=== PATIENT | male | born 1950 | race Caucasian/White ===

== ENCOUNTER 2024-04-15 08:45 | Day surgery (SDC) | payer OTHER ==
[2024-04-08 09:24] VITALS: BP 128/72
[~2024-04-15] VITALS: Ht 172.7 cm; Wt 113.6 kg
--- NOTE | ~2024-04-15 | OR ---
[facility] [address] [facility], [place] [address] Draft DATE OF OPERATION: 04/15/2024 SURGEON: Rhiannon Baptiste DPM PREOPERATIVE DIAGNOSES: 1. Displaced fracture, right first metatarsal. 2. Failure of hardware, right first metatarsal. PROCEDURE: 1. Removal of deep orthopedic device. 2. Open reduction and internal fixation of right first metatarsal fracture. SHORT FILLER BUNCH MACHINE OPERATOR: Jorge Denny DPM. NURSE [employer]CHOOL RESOURCE OFFICER: Sharron Dodson CRNA ANESTHESIA: Local with MAC, local consisted of 10 mL of 1:1 mixture of 2% lidocaine plain and 0.5% ropivacaine plain. ESTIMATED BLOOD LOSS: Less than 5 mL or minimal. HEMOSTASIS: With an ankle tourniquet. MATERIALS UTILIZED: One locking plate with four screws, three of them locking, one of them nonlocking, 3-0 Vicryl, 4-0 Vicryl, and 5-0 nylon. PROCEDURE IN DETAIL: The patient was brought into the operating room and placed upon the operating table in the supine position. After IV sedation, the above local anesthesia was administered about the patient's right first metatarsal region. The right foot was then scrubbed, prepped, and draped in the usual sterile technique. An Esmarch bandage was utilized to exsanguinate the patient's right foot and then left wrapped around the ankle to act as a tourniquet. Attention was then directed to the dorsal aspect of the patient's right first metatarsal area approximately a 6 cm incision was performed both parallel and PATIENT NAME: CORY SWANSON OPERATIVE REPORT DATE OF : 52 REPORT #: [id number] PHYSICIAN: RHIANNON BAPTISTE DPM PCP: MIKHAIL MIRAMONTES REPORT IS CONFIDENTIAL AND NOT TO BE RELEASED WITHOUT AUTHORIZATION [facility] [address] [place] [id number] Draft medial to the tendon of the extensor hallucis longus. The incision was oriented along the line of the previous incision. The incision was deepened through the subcutaneous tissue with care being taken to identify and retract vital neurovascular structures. Bleeders were cauterized and ligated as necessary. Sharp dissection utilized with a #64 blade, it was utilized down to the level of the bone. At this time, a hardware was discovered plate with the locking screws in place. The first metatarsal head had been displaced dorsally and slid also somewhat proximally telescoping slightly over the remaining first metatarsal with the proximal component of the locking plate still in place. Soft tissue was freed from the locking plate region utilizing a [place] elevator and then #64 blade. A [employer] screwdriver was then utilized to remove the locking screws, which was still firmly in place first distally and then proximally along with the broken component of the locking plate. Both the screws and locking plate were removed. The area was flushed with copious amounts of sterile normal saline. The patient's toe was distracted and the first metatarsal manipulated to reorient the metatarsal head into more correct position. This was then held in place utilizing a K-wire. Intraoperative fluoroscopy was utilized to appreciate alignment and jainism of the first metatarsal length. A new locking plate was then applied. Locking screws were then applied both distally and proximally, one nonlocking screw was also applied proximally. Intraoperative fluoroscopy verified placement of the screws and found to be ideal. The area was then closed utilizing 3-0 Vicryl for deep and then 5-0 nylon was utilized to reapproximated and coapt the skin. Surgical site was then injected with a postoperative injection consisting of 5 mL of 0.5% ropivacaine, 1 mL of dexamethasone phosphate. The surgical site was then closed utilizing Adaptic, Betadine soaked gauze, rolled gauze and Coban. The ankle tourniquet was then removed. Prompt hyperemic response was noted to all digits of the patient's right foot. The patient tolerated the procedure and the anesthesia well and following the period of postoperative monitoring, the patient was discharged to home with both written and oral instructions. LEIGH ANN Diaz/WOO /[id number] Copies: PATIENT NAME: CORY SWANSON OPERATIVE REPORT DATE OF : 52 REPORT #: [id number] PHYSICIAN: RHIANNON BAPTISTE DPM PCP: MIKHAIL MIRAMONTES REPORT IS CONFIDENTIAL AND NOT TO BE RELEASED WITHOUT AUTHORIZATION [facility] [address] [place] [address] Rajinder Barone [place] [address] Draft ~ PATIENT NAME: CORY SWANSON OPERATIVE REPORT DATE OF : 52 REPORT #: [id number] PHYSICIAN: RHIANNON BAPTISTE DPM PCP: MIKHAIL MIRAMONTES REPORT IS CONFIDENTIAL AND NOT TO BE RELEASED WITHOUT AUTHORIZATION
[~2024-04-15 08:45] MED LIST: ALOGLIPTIN25 MG PO; B12 ACTIVE1000 MCG PO; BAYER CHEWABLE81 MG PO; CEFAZOLIN SODIUM 1 GM/10 ML SYR IV SCH; CLARITIN10 M2 PO; GLIPIZIDE10 MG PO; IBLOOD GLUCOSE TEST STRIP 1 EA TEST VI PRN; JARDIANCE25 MG PO; LACTATED RINGER'S 1,000 ML IV SCH; LANTUS100 UNITS/ SUB-Q; LIDOCAINE HCL 1% 5 ML SDV INJ ONE; LIPITOR20 MG PO; LISINOPRIL-HCT1 EACH PO; MAGNESIUM400 M1 PO; METFORMIN HCL1000 M1 PO; MULTI VITAMIN1 EACH PO; NEURONTIN300 MG PO; OMEPRAZOLE20 MG PO; OZEMPIC1 MG/0.71 SUB-Q; TOPROL XL25 MG PO; VITAMIN D325 MC4 PO; WEGOVY1 MG/0.5 M
[2024-04-15 09:59] VITALS: BP 113/66
[2024-04-15] MEDS ORDERED: Ropivacaine HCl 0.5% 30 ML VIAL ONE (10:58)
[2024-04-15] MEDS ORDERED: DEXAMETHASONE SOD PHOS 4 MG/ML VIAL ONE (10:58)
[2024-04-15] MEDS ORDERED: LIDOCAINE HCL 2% 20 ML MDV ONE (10:58)
[2024-04-15] MEDS ORDERED: propofoL 200 MG/20 ML VIAL ONE ×2 (11:06→12:07)
[2024-04-15] MEDS ORDERED: LIDOCAINE HCL 2% 5 ML SDV ONE (11:06)
[2024-04-15] MEDS ORDERED: dexmedeTOMIDine HCl 200 MCG/2 ML VIAL ONE (11:07)
[2024-04-15] MEDS ORDERED: LACTATED RINGER'S 1,000 ML IV ONE (12:16)
--- NOTE | 2024-04-15 12:59 | NUR ---
04/15/24 1259 Rosario Perez 1250: PATIENT ARRIVES IN PACU UNRESPONSIVE TO MY VOICE OR LIGHT TOUCH. SNORING RESPIRATIONS HEARD. 1255: PATIENT LIFTS HIS HEAD OFF HIS PILLOW. PATIENT IS REASSURED. HE DENIES PAIN AND RETURNS TO RESTING QUIETLY, WITH HIS EYES CLOSED WHEN UNSTIMULATED.
[2024-04-15 13:31] VITALS: BP 124/76
== END 2024-04-15 13:38 | disposition home or self-care (01) ==
LOC: DS 08:45
PROVIDERS: ATTEND Podiatrist Foot & Ankle Surgery
PROC: 0SPM04Z Removal of Internal Fixation Device from Right Metatarsal-Phalangeal Joint, Open Approach (ICD-10-PCS; principal; 2024-04-15 11:35)
PROC: 0QSN04Z Reposition Right Metatarsal with Internal Fixation Device, Open Approach (ICD-10-PCS; 2024-04-15 11:35)
DX: T84.213A Breakdown (mechanical) of internal fixation device of bones of foot and toes, initial encounter (principal); Y79.8 Miscellaneous orthopedic devices associated with adverse incidents, not elsewhere classified; S92.311A Displaced fracture of first metatarsal bone, right foot, initial encounter for closed fracture; X58.XXXA Exposure to other specified factors, initial encounter; I10 Essential (primary) hypertension; E11.9 Type 2 diabetes mellitus without complications; J45.909 Unspecified asthma, uncomplicated; Z79.4 Long term (current) use of insulin; Z79.891 Long term (current) use of opiate analgesic; Z79.899 Other long term (current) drug therapy; Z87.891 Personal history of nicotine dependence; E66.9 Obesity, unspecified; Z68.38 Body mass index [BMI] 38.0-38.9, adult
CPT/HCPCS: 73620; 73630; J0690; J1100; J2001; J2704; J2795; J7121